=== PATIENT | female | born 1955 | race Caucasian/White ===

== ENCOUNTER → 2025-01-09 08:51 | Outpatient (REF) | payer MEDICARE, SELFPAY | LOC: RAD 08:51 | PROVIDERS: ATTENDING PHYSICIAN Nurse Practitioner Family; FAMILY PHYSICIAN Physician Assistant | DX: R79.89 Other specified abnormal findings of blood chemistry (principal) | CPT/HCPCS: 76536 ==

== ENCOUNTER → 2025-03-06 11:17 | Outpatient (REF) | payer MEDICARE, SELFPAY ==
[2025-03-06 12:38] LABS: Hematocrit 38.6 % (37.0-47.0); Hemoglobin 12.8 g/dL (12.0-16.0); Mean Corp Hgb Conc. 33.2 g/dL (33.0-37.0); Mean Corpuscular Volume 92.3 fL (81.0-99.0); Nucleated Red Blood Cells % 0 %; Platelet Count 368 10^3/uL (130-400); Red Cell Dist. Width 12.8 % (11.5-14.5)
[2025-03-06 12:58] LABS: ALT (SGPT) 20 U/L (0-35); AST (SGOT) 25 U/L (14-36); Albumin 4.6 g/dl (3.5-5.0); Alkaline Phosphatase 76 U/L (38-126); Blood Urea Nitrogen 18 mg/dl (7-17); Calcium 9.9 mg/dl (8.4-10.2); Carbon Dioxide 31 mmol/L (22-30); Chloride 102 mmol/L (98-107); Glucose 97 mg/dl (70-99); HDL Cholesterol 80 mg/dl; LDL Cholesterol, Calculated 94 mg/dl; Potassium 4.9 mmol/L (3.5-5.1); Sodium 137 mmol/L (135-145); Total Protein 7.5 g/dl (6.3-8.2); Very Low Density Lipoprotein 13 mg/dl (0-30); eGFR > 60.00
== END ==
LOC: REG 11:17
PROVIDERS: ATTENDING PHYSICIAN Physician Assistant
DX: I10 Essential (primary) hypertension (principal); M85.80 Other specified disorders of bone density and structure, unspecified site; M43.17 Spondylolisthesis, lumbosacral region; M19.90 Unspecified osteoarthritis, unspecified site; F41.9 Anxiety disorder, unspecified; F33.42 Major depressive disorder, recurrent, in full remission; R53.83 Other fatigue; K29.00 Acute gastritis without bleeding; Z13.220 Encounter for screening for lipoid disorders
CPT/HCPCS: 36415; 80053; 80061; 85025